=== PATIENT | female | born 1935 | race Caucasian/White ===

== ENCOUNTER 2019-01-28 04:45 | Inpatient (IN) ==
[2019-01-28] MEDS ORDERED: LOPRESSOR IV ONE ×2 (05:08→05:37)
--- NOTE | 2019-01-28 05:18 | PROVIDER DOCUMENTATION ---
HPI-Chest Pain - General Chief Complaint: Chest Pain Stated Complaint: Chest Pain Time Seen by Provider: 01/28/19 05:08 Source: patient Allergies/Adverse Reactions: Patient Allergies Allergy/AdvReac Type Severity Reaction Status Date / Time azithromycin Allergy RASH Verified 09/09/14 09:22 iodine Allergy RASH Verified 09/09/14 09:22 Penicillins Allergy RASH Verified 09/09/14 09:22 Sulfa (Sulfonamide Allergy RASH Verified 09/09/14 09:22 Antibiotics) Home Medications: Home Medication List Medication Instructions Recorded Confirmed Last Taken Type ATORVAstatin [Lipitor] 10 mg PO QHS 11/26/12 09/09/14 12/09/13 History Dabigatran [Pradaxa] 150 mg PO BID 11/26/12 01/28/19 12/09/13 History Diltiazem HCl [Diltiazem ER] 240 mg PO DAILY 11/26/12 01/28/19 12/09/13 History Glipizide [Glucotrol] 10 mg PO BID 11/26/12 01/28/19 12/09/13 History LISINOpril [Prinivil] 20 mg PO BID 11/26/12 01/28/19 12/09/13 History Omeprazole 20 mg PO DAILY 11/26/12 01/28/19 12/09/13 History Potassium Chloride [Kaon-Cl 10] 10 meq PO DAILY 11/26/12 09/09/14 12/09/13 History Bisoprolol Fumarate 5 mg PO DAILY 08/15/13 01/28/19 12/09/13 History Clonidine [Catapres] 0.1 mg PO BID 08/15/13 09/09/14 12/09/13 History Travoprost (Benzalkonium) 2.5 ml OP HS 08/15/13 09/09/14 12/09/13 History [Travatan 0.004% Eye Drop] Levetiracetam [Keppra] 500 mg PO BID 09/09/14 01/28/19 Unknown History Ondansetron [Zofran] 8 mg PO TID PRN PRN #10 tablet 09/09/14 Unknown Rx Furosemide 40 mg PO DIRECTED 01/28/19 01/28/19 Unknown History Omeprazole 20 mg PO 01/28/19 Unknown History - History of Present Illness-CP Nature of Presenting Problem: about 2 hrs [employer], pt began with palpitations, throbbing CP. No radiation, nothing makes better nor worse. No new SOB, no diaphoresis, no N/V. Has had similar before. Has seen Dr Yang, but not in years. Location: reports: substernal Chest Pain Radiation: reports: no radiation Quality of Pain: reports: throbbing Timing: still present Modifying Factors: improves with: nothing Similar Symptoms Previously?: Yes Recently Seen Here or By Another Healthcare Provider: No Review of Systems - Adult - REVIEW OF SYSTEMS - ADULT Constitutional: reports: no symptoms reported Eyes: reports: no symptoms reported Ears, Nose, Mouth & Throat: reports: no symptoms reported Cardiovascular: reports: see HPI Respiratory: reports: no symptoms reported Gastrointestinal: reports: no symptoms reported Genitourinary: reports: no symptoms reported Musculoskeletal: reports: no symptoms reported Integumentary: reports: no symptoms reported Neurological: reports: no symptoms reported Psychiatric: reports: no symptoms reported Endocrine: reports: no symptoms reported Hematologic/Lymphatic: reports: no symptoms reported Allergic/Immunologic: reports: no symptoms reported Past History - Adult - PAST MEDICAL HISTORY-ADULT Review of Records: reports: Medications Reviewed Major Childhood Illnesses: reports: denies history Cardiovascular: reports: A-Fib, HTN Respiratory: reports: denies history Gastrointestinal: reports: denies history Obstetrical/Gynecological: reports: denies history Genitourinary: reports: denies history Musculoskeletal: reports: denies history Neurological: reports: CVA, Seizures/Epilepsy Psychiatric: reports: denies history Endocrine/Immune: reports: Diabetes Other Conditions: reports: denies history - PRIOR SURGERIES/PROCEDURES Surgical/Procedure History: reports: reviewed, not pertinent, other (cataract removal) - IMMUNIZATION STATUS Childhood Immunizations: See Nurse Assessment Flu Vaccine: See Nurse Assessment - FAMILY HISTORY Family History: reviewed, not pertinent Physical Exam-General - PHYSICAL EXAM-ADULT Initial Vital Signs Reviewed: Yes - CONSTITUTIONAL General Appearance: appears well, alert, no apparent distress - EYES Eyes: PERRL/EOMI, pink conjunctivae - HEAD, EARS, NOSE, MOUTH & THROAT HENMT: normocephalic/atraumatic, moist mucous membranes, normal ENT inspection, pharynx normal - NECK Neck: non-tender, full range of motion, supple, normal inspection - RESPIRATORY Respiratory: chest non-tender, lungs clear, normal breath sounds - CARDIOVASCULAR Cardiovascular: tachycardia - GASTROINTESTINAL (ABDOMEN) Abdominal Exam: non tender, soft - MUSCULOSKELETAL Back Exam: normal inspection, no CVA tenderness, no vertebral tenderness Extremity: normal range of motion, non-tender - SKIN Integumentary: normal color, normal turgor, warm/dry - NEUROLOGIC Neurologic: piling cutter II-XII nml as tested, grossly normal, no motor/sensory deficits - PSYCHIATRIC Psych/Mental Status: normal mood/affect, normal thought content, normal thought process, oriented x 3 - HEART Score HEART Score: History: Slightly Suspicious HEART Score: ECG: Non-Specific Repolarization Disturbance/LBBB/PM HEART Score: Age: > or = 65 Years HEART Score: Risk Factors for Atherosclerotic Disease: > or = 3 Risk Factors or History of Atherosclerotic Disease HEART Score: Troponin: < or = Normal Limit Total HEART Score:: 5 Progress - PLAN OF CARE/RESULTS Progress/Plan/Lab Results: Vital Signs - 8 hr 01/28/19 04:52 01/28/19 04:53 01/28/19 05:17 Temperature 98.2 F Pulse Rate 147 H 146 H 119 H Respiratory Rate 31 H 28 H 27 H Blood Pressure 163/110 148/109 O2 Sat by Pulse Oximetry 94 L 95 01/28/19 05:27 01/28/19 05:30 01/28/19 05:33 Temperature Pulse Rate 115 H 102 H 122 H Respiratory Rate 27 H 24 24 Blood Pressure 158/76 149/68 155/80 O2 Sat by Pulse Oximetry 94 L 95 96 01/28/19 05:40 01/28/19 05:48 01/28/19 05:54 Temperature Pulse Rate 125 H 131 H 123 H Respiratory Rate 25 H 23 21 Blood Pressure 153/101 156/64 O2 Sat by Pulse Oximetry 95 95 96 01/28/19 06:03 01/28/19 06:18 01/28/19 06:43 Temperature Pulse Rate 128 H 128 H 128 H Respiratory Rate 23 24 18 Blood Pressure 147/80 126/71 O2 Sat by Pulse Oximetry 96 94 L 96 01/28/19 06:48 01/28/19 07:02 01/28/19 07:10 Temperature Pulse Rate 126 H 125 H 128 H Respiratory Rate 23 28 H 24 Blood Pressure 153/94 152/89 O2 Sat by Pulse Oximetry 96 96 97 01/28/19 07:17 01/28/19 07:20 01/28/19 07:30 Temperature Pulse Rate 125 H 135 H 139 H Respiratory Rate 21 25 H 17 Blood Pressure 148/69 148/101 O2 Sat by Pulse Oximetry 96 96 95 01/28/19 07:31 01/28/19 07:32 01/28/19 07:40 Temperature Pulse Rate 136 H 141 H 125 H Respiratory Rate 22 26 H 25 H Blood Pressure 167/124 160/100 O2 Sat by Pulse Oximetry 96 94 L 97 01/28/19 07:43 Temperature Pulse Rate 131 H Respiratory Rate 18 Blood Pressure 149/75 O2 Sat by Pulse Oximetry 97 Laboratory Results - last 24 hr 01/28/19 01/28/19 01/28/19 04:56 04:56 04:56 WBC 19.95 H RBC 4.72 Hgb 14.1 Hct 43.0 MCV 91.1 MCH 29.9 MCHC 32.8 L RDW Std Deviation 13.3 Plt Count 270 MPV 10.3 Immature Gran % (Auto) 0.3 Neut % (Auto) 73.7 Lymph % (Auto) 16.[address] % (Auto) 8.4 Eos % (Auto) 0.8 Baso % (Auto) 0.2 Immature Gran # (Auto) 0.06 H Neut # (Auto) 14.72 H Lymph # (Auto) 3.32 Lane # (Auto) 1.67 H Eos # (Auto) 0.15 Baso # (Auto) 0.03 Sodium 139 Potassium 3.8 Chloride 99 Carbon Dioxide 22 L Anion Gap 18 BUN 26 H Creatinine 1.6 H Estimated GFR/1.73 m2 31 BUN/Creatinine Ratio 16 Glucose 197 H Calculated Osmolality 288 Calcium 9.6 Magnesium 1.6 Total Bilirubin 0.41 AST 17 ALT 8 L Alkaline Phosphatase 91 Creatine Kinase 55 Troponin T < 0.010 Total Protein 8.1 Albumin 4.1 Globulin 4.0 Albumin/Globulin Ratio 1.0 Plasma Lactate TSH Urine Source Urine Color Urine Turbidity Urine pH Ur Specific [place] Urine Protein Ur Glucose (Stick) Ur Ketones (Stick) Urine Blood Urine Nitrite Urine Bilirubin Urobilinogen Dipstick Urine Leukocytes Urine WBC (Auto) Urine RBC (Auto) U Epithel Cells (Auto) Urine Bacteria (Auto) 01/28/19 01/28/19 01/28/19 04:56 05:01 06:29 WBC RBC Hgb Hct MCV MCH MCHC RDW Std Deviation Plt Count MPV Immature Gran % (Auto) Neut % (Auto) Lymph % (Auto) Lane % (Auto) Eos % (Auto) Baso % (Auto) Immature Gran # (Auto) Neut # (Auto) Lymph # (Auto) Lane # (Auto) Eos # (Auto) Baso # (Auto) Sodium Potassium Chloride Carbon Dioxide Anion Gap BUN Creatinine Estimated GFR/1.73 m2 BUN/Creatinine Ratio Glucose Calculated Osmolality Calcium Magnesium Total Bilirubin AST ALT Alkaline Phosphatase Creatine Kinase Troponin T Total Protein Albumin Globulin Albumin/Globulin Ratio Plasma Lactate 4.0 H TSH 2.37 Urine Source CLEAN CATCH Urine Color YELLOW Urine Turbidity CLEAR Urine pH 6.5 Ur Specific [place] 1.001 Urine Protein 100 A Ur Glucose (Stick) TRACE Ur Ketones (Stick) TRACE A Urine Blood SMALL A Urine Nitrite NEGATIVE Urine Bilirubin NEGATIVE Urobilinogen Dipstick NORMAL Urine Leukocytes NEGATIVE Urine WBC (Auto) <10 Urine RBC (Auto) <10 U Epithel Cells (Auto) <10 Urine Bacteria (Auto) NEGATIVE Orders Category Date Time Status Cardiac Monitoring DIRECTED Care 01/28/19 05:10 Active CHEST-1 VIEW [RAD] Stat Exams 01/28/19 05:09 Completed BLOOD CULTURE [BLDCUL] Stat Lab 01/28/19 06:55 Received C DIFF TOXIN [STOOL] Stat Lab 01/28/19 07:42 Uncollected CBC WITH DIFF [HEME] Stat Lab 01/28/19 04:56 Completed COMPREHENSIVE METABOLIC PANEL [CHEM] Stat Lab 01/28/19 04:56 Completed Cardiac Profile [CK PROFILE] [SP CHEM] Stat Lab 01/28/19 04:56 Completed LACTATE, PLASMA [CHEM] Stat Lab 01/28/19 05:01 Completed MAGNESIUM [CHEM] Stat Lab 01/28/19 04:56 Completed TROPONIN T Stat Lab 01/28/19 04:56 Completed TSH Stat Lab 01/28/19 04:56 Completed URINALYSIS W/POSS RFLX CULT [URINALYSIS] Stat Lab 01/28/19 06:29 Completed 0.9% Sodium Chloride Inj [Ns] 1,000 ml Med 01/28/19 07:42 Discontinued IV 999 mls/hr Levofloxacin 500 mg/D5w [Levaquin 500 mg/D5w] Med 01/28/19 07:42 Discontinued 500 mg in 100 ml IV NOW Metoprolol [Lopressor] Med 01/28/19 05:08 Discontinued 5 mg IV NOW ONE Metoprolol [Lopressor] Med 01/28/19 05:37 Discontinued 5 mg IV NOW ONE Metronidazole 500 mg/Ns [Flagyl 500 mg/Ns] Med 01/28/19 07:42 Discontinued 500 mg in 100 ml IV NOW Ondansetron [Zofran] Med 01/28/19 07:46 Discontinued 4 mg IV NOW ONE Result Diagrams: 01/28/19 04:56 01/28/19 04:56 - REASSESSMENT Reassessment #1 Time Reassessed: 05:36 (says wants to go home, HR still 130s) Status: improving Reassessment #2 Time Reassessed: 07:39 Status: unchanged (Lactate noted, patient still tachycardic/a-fib. Further discussion with the patient, she states that she feels well. Denies any recent fever, cough but did develop some diarrhea yesterday. Will give IV flagyl and levaquin as well as 1 liter NS to start. Because tenuous cardiac condition, will not be aggressive with the IV.) - EKG 1 Time of EKG reading by physician:: 04:58 EKG Read and Signed by:: Rory Albarran EKG Interpretation (*Must complete 3 of following elements*): Abnormal Rate: 142 Rhythm: a fib with RVR [place]: left QRS: Q Waves present (infer leads), poor R wave progression - CONSULTS/PCP/HOSPITALIST Notification #1 *Consult/PCP/Hospitalist*: Dr. Lovett Time Discussed: 08:42 Consult Disposition: Will see in ED - CHANGE OF SHIFT REPORT (ED Provider) 1 Report Given and Care Transferred to:: [facility] Time of Transfer: 07:00 Items Pending: Labs, Physician Consult/Arrival Departure - Departure Date of Disposition Decision: 01/28/19 Time of Disposition Decision: 08:42 DIAGNOSIS: Atrial fibrillation with normal ventricular rate, Lactate blood increased Disposition: ADMITTED INPATIENT 09 Certified Medical Emergency: Emergent Condition: Critical Referrals and Follow-Ups: Joshua Lovett MD [Primary Care Provider] - - Critical Care Note This patient required my direct & personal management of CC.: Yes Total Time (mins): 31 Critical Care Statement: This patient required my direct personal management to treat or rule out processes, the absence of which, could potentiallly result in sudden, clinically significant life or limb threatening deterioration. Attestation - Physician/ DWAINE Attestation Patient care was provided by Advanced Practice Provider:: No The physician spent face to face time with patient:: Yes Advanced Practice Provider documentation review:: Supervising physician onsite and consulted in the evaluation and care of this patient. The physician did have a face to face encounter with the patient.
[2019-01-28 05:45] LABS: BASO# 0.03 X1000 (0.0-0.2); BASO% 0.2 % (0.0-0.8); EOS# 0.15 X1000 (0.0-0.7); EOS% 0.8 % (0.0-10.0); HEMOGLOBIN 14.1 g/dL (12.0-16.0); IMM GRAN# 0.06 X1000 (0.0-0.04); IMM GRAN% 0.3 % (0.0-0.5); LYMPH# 3.32 X1000 (1.2-3.4); LYMPH% 16.6 % (20.5-51.1); MCH 29.9 PG (27-31); MCHC 32.8 g/dL (33-37); MCV 91.1 FL (81-99); MONO# 1.67 X1000 (0.11-0.59); MONO% 8.4 % (1.7-9.3); MPV 10.3 FL (7.4-10.4); NEUT# 14.72 X1000 (1.4-6.5); NEUT% 73.7 % (42.2-75.2); PLT 270 X1000 (130-400); RBC 4.72 XMIL (4.2-5.4); RDW 13.3 % (11.5-14.5); WBC 19.95 X1000 (4.8-10.8)
[2019-01-28 05:54] LABS: ALBUMIN 4.1 g/dL (3.5-5.0); CALCIUM 9.6 mg/dL (8.8-10.2); CREATININE 1.6 mg/dL (0.5-0.9); MAGNESIUM 1.6 mg/dL (1.5-2.7); POTASSIUM 3.8 mmol/L (3.5-5.1); TOTAL BILIRUBIN 0.41 mg/dL (0.20-1.00); TOTAL PROTEIN 8.1 g/dL (6.3-8.3)
[2019-01-28 06:47] LABS: URINE SOURCE CLEAN CATCH
[2019-01-28 07:00] LABS: BILIRUBIN URINE NEGATIVE (NEGATIVE); BLOOD URINE SMALL (NEGATIVE); COLOR YELLOW; GLUCOSE URINE TRACE mg/dL (NEGATIVE); KETONE URINE TRACE mg/dL (NEGATIVE); LEUKOCYTES URINE NEGATIVE (NEGATIVE); NITRITE URINE NEGATIVE (NEGATIVE); PH URINE 6.5; PROTEIN URINE 100 mg/dL (NEGATIVE); SP GRAVITY URINE 1.001; TURBIDITY URINE CLEAR (CLEAR); UR EPITHELIAL CELLS <10 /HPF (<10); URINE BACTERIA NEGATIVE /HPF; URINE RBC <10 /HPF (<10); URINE WBC <10 /HPF (<10); UROBILINOGEN URINE NORMAL (NORMAL)
--- NOTE | 2019-01-28 07:31 | Diag Imaging Result Doc PS360 ---
EXAM: CHEST-1 VIEW INDICATION: palpitations TECHNIQUE: One view COMPARISON: 10/28/2017 FINDINGS: The lungs are grossly clear. There is no discrete pleural fluid collection or pneumothorax. The cardiomediastinal silhouette and central vasculature are grossly unremarkable. IMPRESSION: No evidence of acute pathology by plain radiograph. Electronically signed by Matthieu Crisostomo 01/28/2019 7:29 AM
[2019-01-28] MEDS ORDERED: FLAGYL 500 MG/NS 500 MG/100 ML IVPB IV ONE (07:42)
[2019-01-28] MEDS ORDERED: LEVAQUIN 500 MG/D5W 500 MG/100 ML IVPB IV ONE (07:42)
[2019-01-28] MEDS ORDERED: NS 1,000 ML IV ONE (07:42)
[2019-01-28] MEDS ORDERED: ZOFRAN IV ONE (07:46)
[2019-01-28] MEDS ORDERED: CARDIZEM IV ONE (08:59)
[2019-01-28] MEDS ORDERED: ZEBETA PO ONE ×2 (09:23→17:35)
--- NOTE | 2019-01-28 09:23 | EKG Report ---
Test Performed on : 01/28/2019 04:55:34 AM Test Reason : ED. NO EKG ORDER FOR MUSE Blood Pressure : / mmHG Vent. Rate : 142 BPM Atrial Rate : 122 BPM P-R Int : 000 ms QRS Dur : 074 ms QT Int : 274 ms P-R-T Axes : 000 -30 133 degrees QTc Int : 421 ms Atrial fibrillation. with rapid ventricular response. with premature ventricular or aberrantly conduc shelby complexes. Left axis deviation Inferior infarct , age undetermined Anteroseptal infarct (cited on or before 28-OCT-2011) ST & T wave abnormality, consider lateral ischemia Abnormal ECG When compared with ECG of 27-JUN-2018 09:50, Significant changes have occurred Unconfirmed Result
--- NOTE | 2019-01-28 10:52 | HISTORY AND PHYSICAL ---
CHIEF COMPLAINT: Palpitations with some chest tightness. PRESENT ILLNESS: Mrs. Lewis is an 83-year-old white female who lives with her special needs daughter. Her daughter called for an ambulance around 4 this morning after her mother had an hour or so of rapid forceful heartbeat and occasional chest tightness. Mrs. Lewis says that yesterday she began having some diarrhea and had 3 or 4 loose stools. She denies abdominal pain, fever, or chills. She has chronic edema due to venous insufficiency in both lower legs. She has not noticed any increased pain or swelling in her calves. She has a long history of chronic atrial fibrillation, and in my office approximately 6 weeks ago, her heart rate was 89. PAST MEDICAL HISTORY: Longstanding hypertension, chronic atrial fibrillation, type 2 diabetes mellitus. In 2010, she had a stroke with mild residual left hemiparesis. She has been on Pradaxa twice a day ever since then with no further strokes. She has chronic venous hypertension and stasis dermatitis of both lower legs. PAST SURGICAL HISTORY: Remarkable for a previous appendectomy, cervical polyp, and benign breast biopsy. ALLERGIES: She is allergic to penicillin, which causes a rash. Sulfa drugs also a rash, and glyburide. HOME MEDICATIONS: Pradaxa 150 mg b.i.d., Travatan Z eyedrops 1 drop at bedtime in the left eye, bisoprolol 5 mg daily, vitamin B12 1000 mcg p.o. daily, diltiazem CD 240 mg daily, glipizide 5 mg twice a day, levetiracetam 500 mg twice a day, lisinopril 20 mg twice a day, omeprazole 20 mg daily. SOCIAL HISTORY: She is . She cares for her adult daughter, who is mentally retarded. She has never used alcohol or tobacco. REVIEW OF SYSTEMS: General: No fever, chills, night sweats, weight loss. HEENT exam: Vision and hearing are stable without recent changes. She sees her fruit press operator every 6 months to monitor glaucoma. Ears, Nose, and Throat: Minimal hearing loss. No recent sore throat or hoarseness. She sees a dentist for gum disease. Cardiovascular: No recent angina, diaphoresis, dizziness, exertional shortness of breath, or syncope. She has no history of congestive heart failure or valvular heart disease and an echocardiogram several years ago documented normal left ventricular function and minimal if any valvular disease. Respiratory: No cough, shortness of breath, sputum production, or wheezing. GI: Other than diarrhea, it is negative with no recent abdominal pain, difficulty swallowing, heartburn, melena, or hematemesis. No nausea or vomiting. : No dysuria, hematuria. Rare incontinence. Musculoskeletal: Minimal but stable diffuse joint aches at times. Dermatologic: No rash or itching. She does have a history of chronic venous stasis ulceration and stasis dermatitis. Neurologic: No dizziness or falls. She does not recall ever having a seizure but was placed on Keppra after her stroke in 2010. Psychiatric: No mood or thought disorders. Her memory is stable and she pays her own bills and navigates well in driving. Endocrine: No history of thyroid disease. Her diabetes has been fairly well-controlled on oral medication. Hematologic: No recent bleeding episodes despite her Pradaxa. PHYSICAL EXAMINATION: VITAL SIGNS: Temperature is 98.2, blood pressure 149/75, heart rate 131, respirations 18, O2 saturation 94% on room air. GENERAL APPEARANCE: Alert, talkative, elderly white female, who remains cheerful despite her adversity. HEENT EXAM: Pupils equal, round, and reactive to light. Extraocular movements are intact. Oropharynx is benign. NECK: Supple with no adenopathy, JVD, or bruits. CARDIOVASCULAR: There is an irregular irregular tachycardia with variable S1. No murmurs or gallops are appreciated. LUNGS: Clear to auscultation and percussion. ABDOMEN: Soft, flat, nontender, with no organomegaly, no rebound or guarding. Bowel sounds are active. MUSCULOSKELETAL: No obvious joint abnormalities. She has moderate brawny edema of both lower legs and ankles with multiple varicose veins. The right calf has increased orange peel texture to the skin and redness with slight tenderness. LYMPHATIC: No adenopathy. NEUROLOGIC: Mental status is normal. Speech is clear and well-articulated. There are no obvious cranial nerve deficits. She moves all extremities on command. Gait is not tested. ASSESSMENT: 1. Chronic atrial fibrillation with recently increased heart rate and rapid ventricular response. She will need admission and reinstitution of medications to control her heart rate. She will be continued on the Pradaxa. 2. Elevated white blood count probably due to cellulitis of right calf. Will treat with intravenous cefazolin initially. 3. Chronic venous hypertension of both lower extremities. 4. Essential hypertension. 5. Type 2 diabetes mellitus. 6. History of pernicious anemia on oral replacement. TREATMENT PLAN: Admit for telemetry monitoring and will give 1 dose of IV Cardizem. She will need telemetry monitoring on the floor. Hopefully in 2 or 3 days, she will be ready to return home and care for her daughter. cc: Joshua Lovett MD
[2019-01-28] MEDS: BISOPROLOL FUMARATE 5 MG PO SCH ×2 (11:02→11:05)
[2019-01-28] MEDS: KEFZOL 1 GM/D5W 1 GM/50 ML IVPB IV SCH ×2 (11:22→21:15)
[2019-01-28] MEDS ORDERED: ZEBETA PO SCH (11:45)
[2019-01-28] MEDS ORDERED: DILAUDID IV ONE (19:31)
[2019-01-28] MEDS ORDERED: CARDIZEM CD PO SCH (21:00)
[2019-01-28] MEDS ORDERED: TRAVATAN 0.004% OPH SOLN OPH SCH (21:00)
[2019-01-28] MEDS: GLUCOTROL PO SCH (21:15)
[2019-01-28] MEDS: PRINIVIL PO SCH (21:15)
[2019-01-28] MEDS: LIPITOR PO SCH (21:15)
[2019-01-28] MEDS: KEPPRA PO SCH (21:16)
[2019-01-28] MEDS: PRADAXA PO SCH (21:16)
[2019-01-28] MEDS: CATAPRES PO SCH (21:16)
[2019-01-29] MEDS: KEFZOL 1 GM/D5W 1 GM/50 ML IVPB IV SCH ×2 (02:53→11:48)
[2019-01-29] MEDS: PRILOSEC PO SCH (06:41)
[2019-01-29] MEDS ORDERED: PREVNAR 13 IM ONE (08:19)
[2019-01-29 08:53] LABS: HEMATOCRIT 41.1 % (37.0-47.0); HEMOGLOBIN 13.4 g/dL (12.0-16.0); MCH 30.1 PG (27-31); MCHC 32.6 g/dL (33-37); MCV 92.4 FL (81-99); MPV 10.1 FL (7.4-10.4); RBC 4.45 XMIL (4.2-5.4); RDW 13.6 % (11.5-14.5); WBC 24.43 X1000 (4.8-10.8)
[2019-01-29] MEDS: ZEBETA PO SCH ×2 (09:10→23:30)
[2019-01-29] MEDS: KEPPRA PO SCH ×2 (09:10→23:30)
[2019-01-29] MEDS: CATAPRES PO SCH ×2 (09:10→23:30)
[2019-01-29] MEDS: PRINIVIL PO SCH ×2 (09:11→23:30)
[2019-01-29] MEDS: PRADAXA PO SCH ×2 (09:11→23:30)
[2019-01-29] MEDS: GLUCOTROL PO SCH ×2 (09:12→17:30)
[2019-01-29] MEDS ORDERED: CARDIZEM CD PO ONE (14:09)
[2019-01-29] MEDS: LIPITOR PO SCH (23:30)
[2019-01-29] MEDS: CARDIZEM CD PO SCH (23:30)
[2019-01-30] MEDS: KEFZOL 1 GM/D5W 1 GM/50 ML IVPB IV SCH (06:25)
[2019-01-30] MEDS: PRILOSEC PO SCH (06:25)
[2019-01-30 06:58] LABS: BASO# 0.04 X1000 (0.0-0.2); BASO% 0.2 % (0.0-0.8); EOS# 0.21 X1000 (0.0-0.7); EOS% 1.3 % (0.0-10.0); HEMATOCRIT 39.4 % (37.0-47.0); HEMOGLOBIN 12.8 g/dL (12.0-16.0); IMM GRAN# 0.06 X1000 (0.0-0.04); IMM GRAN% 0.4 % (0.0-0.5); LYMPH# 2.55 X1000 (1.2-3.4); LYMPH% 15.3 % (20.5-51.1); MCH 29.8 PG (27-31); MCHC 32.5 g/dL (33-37); MCV 91.8 FL (81-99); MONO# 2.59 X1000 (0.11-0.59); MONO% 15.5 % (1.7-9.3); MPV 10.5 FL (7.4-10.4); NEUT# 11.24 X1000 (1.4-6.5); NEUT% 67.3 % (42.2-75.2); PLT 206 X1000 (130-400); RBC 4.29 XMIL (4.2-5.4); RDW 13.6 % (11.5-14.5); WBC 16.69 X1000 (4.8-10.8)
[2019-01-30 07:06] LABS: CALCIUM 8.9 mg/dL (8.8-10.2); CREATININE 1.5 mg/dL (0.5-0.9); POTASSIUM 2.8 mmol/L (3.5-5.1)
[2019-01-30] MEDS ORDERED: K-LYTE CL PO ONE (07:59)
[2019-01-30 08:02] VITALS: BP 119/56
[2019-01-30] MEDS ORDERED: MAG-OX PO SCH (09:00)
[2019-01-30] MEDS ORDERED: KEFLEX PO SCH (09:00)
[2019-01-30] MEDS: CATAPRES PO SCH (09:33)
[2019-01-30] MEDS: KEPPRA PO SCH (09:33)
[2019-01-30] MEDS: PRINIVIL PO SCH (09:33)
[2019-01-30] MEDS: ZEBETA PO SCH (09:33)
[2019-01-30] MEDS: PRADAXA PO SCH (09:34)
[2019-01-30] MEDS: GLUCOTROL PO SCH (09:34)
[2019-01-30] MEDS: CARDIZEM CD PO SCH (09:34)
--- NOTE | 2019-01-31 08:04 | DISCHARGE SUMMARY ---
ADMISSION DATE: 01/28/2019 DISCHARGE DATE: 01/30/2019 FINAL DIAGNOSES: 1. Cellulitis of the right lower extremity with early sepsis. 2. Chronic atrial fibrillation with rapid ventricular response. 3. Chronic venous hypertension, bilateral. 4. Essential hypertension. 5. Type 2 diabetes. 6. Glaucoma. 7. Hypokalemia. PRESENT ILLNESS: Ms. Lewis is an 83-year-old white female who presented to the emergency room early in the morning with a history of palpitations. In the emergency room, her evaluation was remarkable for rapid irregular heart rate and an elevated white blood count. She also had an elevated lactate level of 4. She had a history of chronic atrial fibrillation, hypertension and type 2 diabetes. PHYSICAL EXAMINATION: Revealed an alert, cooperative, elderly white female who has clear lung pratt, a rapid irregular heart rate and bilateral chronic venous stasis with increased redness and tenderness of the right calf. DATA BASE: White blood count was 19,000. Hemoglobin and hematocrit were unremarkable. Platelet count was normal. Electrolytes were initially normal with a slightly elevated anion gap of 18, BUN of 26, creatinine of 1.6, glucose 197. Chest x-ray was unremarkable. HOSPITAL COURSE: She was admitted with a diagnosis of atrial fibrillation with rapid ventricular response and suspected cellulitis of the right lower leg. She was treated with intravenous cefazolin. Her heart rate control was improved by increasing her bisoprolol to 5 mg twice a day and Cardizem CD 240 mg twice a day. She was noted to be hypokalemic on the day of discharge and given potassium and a new prescription for some tablets at home. She requested discharge early but agreed to home health as she has to take care of her special needs daughter at home. She is to return to my office in 8-14 days for transition of care visit. She requested [facility]. DISCHARGE MEDICATIONS: 1. Atorvastatin 10 mg at bedtime. 2. Diltiazem CD 240 mg q.12 hours. 3. Clonidine 0.1 mg twice a day. 4. Cephalexin 500 mg q.12 hours for 7 days. 5. Magnesium oxide 400 mg daily. 6. Bisoprolol 5 mg q.12 hours. 7. Travoprost ophthalmic solution as prescribed. 8. Lisinopril 20 mg twice a day. 9. Pradaxa 150 mg twice a day. 10.Omeprazole 20 mg daily. 11.Glipizide 5 mg twice a day. 12.Furosemide 20 mg Saturday, Saturday, Saturday morning. 13.Klor-Con 10 mEq one twice a day. 14.Levetiracetam 500 mg twice a day. cc: Joshua Lovett MD
== END 2019-01-30 10:44 | disposition home health service (06) | DRG 872 ==
LOC: SUPCPDRO → ED 04:45 → EDIPHOLD 10:24 → 4N 20:18
PROVIDERS: ADMIT Internal Medicine; ATTEND Internal Medicine
CPT/HCPCS: 71010; 71045; 80048; 80053; 81001; 82550; 82948; 83605; 83735; 84443; 84484; 85025; 85027; 87040; 90670; 93005; 96365; 96367; 96375; 96376; 99285; A9270; J0690; J1956; J2405; J7030; S0030; XXXXX

== ENCOUNTER 2019-08-07 10:24 | Inpatient (IN) ==
[2019-08-07] MEDS ORDERED: NS 500 ML IV ONE ×2 (11:10→12:28)
[2019-08-07] MEDS ORDERED: ZOFRAN IV ONE (11:10)
--- NOTE | 2019-08-07 11:46 | Diag Imaging Result Doc PS360 ---
EXAM: CHEST-1 VIEW HISTORY: N/V, abd pain TECHNIQUE: Single view COMPARISON: 03/29/2019 FINDINGS: The lungs are well expanded except for mild increased markings in the left lower lung. Heart is borderline mildly prominent. No pleural effusions identified. No consolidation. IMPRESSION: Atelectasis versus a small infiltrate in the left base Electronically signed by Daruis Dewey 08/07/2019 11:44 AM
[2019-08-07 11:59] LABS: BASO# 0.03 X1000 (0.0-0.2); BASO% 0.1 % (0.0-0.8); EOS# 0.01 X1000 (0.0-0.7); IMM GRAN# 0.16 X1000 (0.0-0.04); IMM GRAN% 0.5 % (0.0-0.5); LYMPH# 0.76 X1000 (1.2-3.4); LYMPH% 2.5 % (20.5-51.1); MCH 29.9 PG (27-31); MCHC 31.8 g/dL (33-37); MCV 93.8 FL (81-99); MONO# 3.61 X1000 (0.11-0.59); MONO% 11.8 % (1.7-9.3); MPV 10.5 FL (7.4-10.4); NEUT# 26.09 X1000 (1.4-6.5); NEUT% 85.1 % (42.2-75.2); PLT 243 X1000 (130-400); RBC 4.69 XMIL (4.2-5.4); RDW 12.8 % (11.5-14.5); WBC 30.66 X1000 (4.8-10.8)
[2019-08-07 12:13] LABS: ALBUMIN 3.9 g/dL (3.5-5.0); CALCIUM 9.7 mg/dL (8.8-10.2); CREATININE 1.4 mg/dL (0.5-0.9); POTASSIUM 4.2 mmol/L (3.5-5.1); TOTAL BILIRUBIN 0.83 mg/dL (0.20-1.00)
[2019-08-07 12:19] LABS: URINE SOURCE VOIDED
[2019-08-07 12:22] LABS: BILIRUBIN URINE NEGATIVE (NEGATIVE); BLOOD URINE MODERATE (NEGATIVE); COLOR YELLOW; GLUCOSE URINE 300 mg/dL (NEGATIVE); KETONE URINE TRACE mg/dL (NEGATIVE); LEUKOCYTES URINE NEGATIVE (NEGATIVE); NITRITE URINE NEGATIVE (NEGATIVE); PH URINE 6.5; PROTEIN URINE 600 mg/dL (NEGATIVE); SP GRAVITY URINE 1.018; TURBIDITY URINE HAZY (CLEAR); UROBILINOGEN URINE NORMAL (NORMAL)
[2019-08-07 12:23] LABS: UR EPITHELIAL CELLS <10 /HPF (<10); URINE BACTERIA 4+ /HPF; URINE RBC 20-40 /HPF (<10); URINE WBC <10 /HPF (<10)
[2019-08-07] MEDS ORDERED: LEVAQUIN 500 MG/D5W 500 MG/100 ML IVPB IV ONE (12:26)
[2019-08-07] MEDS ORDERED: MAXIPIME 2 GM in NS 100 ML IV ONE (12:28)
[2019-08-07] MEDS ORDERED: NS 1,000 ML IV ONE (12:28)
[2019-08-07] MEDS ORDERED: VANCOMYCIN 1 GM/NS 1 GM/250 ML IVPB IV ONE (12:28)
[2019-08-07 13:05] LABS: INR 2.07; PROTIME 23.8 Seconds (11.0-16.0); PTT 53.1 Seconds (22.3-41.8)
--- NOTE | 2019-08-07 13:43 | Diag Imaging Result Doc PS360 ---
EXAM: CT ABDOMEN/PELVIS W/O CONTRAST HISTORY: Abd pain TECHNIQUE: CT abdomen and pelvis without contrast COMPARISON: None. FINDINGS: No calcified gallstones or adjacent inflammation. There are scattered hepatic and splenic granuloma. No focal hepatic normality identified on this noncontrasted study. No splenomegaly. Severe atherosclerosis. Pancreas is atrophic. Normal adrenal glands. No renal stones or hydronephrosis. There are small para-aortic and mesenteric nodes. No bowel obstruction. No inflammation about the cecum. No abscess. There are scattered colonic diverticula. Urinary bladder is moderately distended and is normal. Normal uterus. No pelvic mass. Mildly prominent iliac nodes. Enlarged right inguinal lymph node measuring 17 x 30 mm. IMPRESSION: 1.Severe atherosclerosis 2.Colonic diverticulosis 3.Small scattered nodes with an enlarged right inguinal lymph node This exam was performed using automated exposure control, adjustment of mA or kV according to patient size, and/or use of iterative reconstruction technique. Electronically signed by Darius Dewey 08/07/2019 1:40 PM
[2019-08-07 14:36] LABS: URINE SOURCE CATH
[2019-08-07 14:45] LABS: BILIRUBIN URINE NEGATIVE (NEGATIVE); BLOOD URINE MODERATE (NEGATIVE); COLOR YELLOW; GLUCOSE URINE 150 mg/dL (NEGATIVE); KETONE URINE TRACE mg/dL (NEGATIVE); LEUKOCYTES URINE NEGATIVE (NEGATIVE); NITRITE URINE NEGATIVE (NEGATIVE); PH URINE 6.5; PROTEIN URINE 600 mg/dL (NEGATIVE); SP GRAVITY URINE 1.016; TURBIDITY URINE HAZY (CLEAR); UROBILINOGEN URINE NORMAL (NORMAL)
[2019-08-07 14:48] LABS: UR EPITHELIAL CELLS <10 /HPF (<10); URINE BACTERIA 4+ /HPF; URINE RBC 20-40 /HPF (<10)
[2019-08-07] MEDS ORDERED: HUMALOG SUBQ ONE (16:06)
[2019-08-07] MEDS ORDERED: ZOFRAN ODT PO PRN ×3 (16:08→17:46)
--- NOTE | 2019-08-07 16:14 | PROVIDER DOCUMENTATION ---
This chart was entered by Taylor Vora Scribe, acting as scribe for Rory Albarran MD. HPI-General Adult - General Chief Complaint: Vomiting Stated Complaint: VOMITING Time Seen by Provider: 08/07/19 10:44 Source: patient Allergies/Adverse Reactions: Patient Allergies Allergy/AdvReac Type Severity Reaction Status Date / Time azithromycin Allergy RASH Verified 08/07/19 11:42 iodine Allergy RASH Verified 08/07/19 11:42 Penicillins Allergy RASH Verified 08/07/19 11:42 Sulfa (Sulfonamide Allergy RASH Verified 08/07/19 11:42 Antibiotics) Home Medications: Home Medication List Medication Instructions Recorded Confirmed Last Taken Type Glipizide [Glucotrol] 5 mg PO BID 11/26/12 08/07/19 08/07/19 History LISINOpril [Prinivil] 20 mg PO BID 11/26/12 08/07/19 08/07/19 History Omeprazole 20 mg PO DAILY 11/26/12 08/07/19 08/07/19 History Levetiracetam [Keppra] 500 mg PO BID 09/09/14 08/07/19 08/07/19 History Magnesium Oxide [Mag-Ox] 400 mg PO DAILY #30 tab 01/30/19 08/07/19 08/07/19 Rx Travoprost 0.004% Oph Soln 0 ml OPH HS bottle 01/30/19 08/07/19 08/06/19 Rx [Travatan 0.004% Oph Soln] Bisoprolol [Zebeta] 5 mg PO DAILY 03/17/19 08/07/19 08/07/19 History Prednisolone Acetate/Pf 1 drp OPHTHALMIC (EYE) DAILY 03/17/19 08/07/19 08/07/19 History [Prednisolone Acet 1% Eye Drop] Diltiazem C.d. [Cardizem Cd] 240 mg PO BID 03/29/19 08/07/19 08/07/19 History Dabigatran [Pradaxa] 75 mg PO BID #60 cap 03/30/19 08/07/19 08/07/19 Rx Hydrocodone/Acetaminophen [Jackson 1 ea PO Q6-8H PRN PRN 08/07/19 08/07/19 08/07/19 History 10-325 Tablet] - History of Present Illness -Gen Adult Nature of Presenting Problems: Patient is a 84 year old female who presents with nausea, vomiting, diarrhea and headache. States symptoms started last night. Denies abdominal pain and fever. Location of Pain/Injury: reports: none Quality of Pain: reports: none Severity: reports: mild Onset/Duration: reports: last night Timing: reports: still present Context/Activities at Onset: reports: light activity Associated Symptoms: reports: diarrhea, headaches, nausea, vomiting Similar Symptoms Previously?: Yes Recently seen or treated by another doctor?: No Review of Systems - Adult - REVIEW OF SYSTEMS - ADULT Constitutional: reports: no symptoms reported. denies: chills, fever, fatique Eyes: reports: no symptoms reported Ears, Nose, Mouth & Throat: reports: no symptoms reported. denies: ear pain, nose pain, throat pain Cardiovascular: reports: no symptoms reported. denies: chest pain Respiratory: reports: no symptoms reported. denies: shortness of breath Gastrointestinal: reports: see HPI, diarrhea, nausea, vomiting. denies: abdominal pain Genitourinary: reports: no symptoms reported Musculoskeletal: reports: no symptoms reported Integumentary: reports: no symptoms reported Neurological: reports: see HPI, headache/migraines (RAZO). denies: diz ziness/vertigo, seizure, syncope Psychiatric: reports: no symptoms reported Endocrine: reports: no symptoms reported Hematologic/Lymphatic: reports: no symptoms reported Allergic/Immunologic: reports: no symptoms reported All Other Systems: Reviewed and Negative Past History - Adult - PAST MEDICAL HISTORY-ADULT Review of Records: reports: Old Records Reviewed, Nursing Assessment Review, Medications Reviewed, Social history reviewed & non-contributory. Major Childhood Illnesses: reports: denies history Cardiovascular: reports: A-Fib, CHF, HTN, hyperlipidemia Respiratory: reports: denies history Gastrointestinal: reports: GERD Obstetrical/Gynecological: reports: denies history Genitourinary: reports: denies history Musculoskeletal: reports: denies history Neurological: reports: CVA, Seizures/Epilepsy Psychiatric: reports: denies history Endocrine/Immune: reports: Diabetes Other Conditions: reports: denies history - PRIOR SURGERIES/PROCEDURES Surgical/Procedure History: reports: reviewed, not pertinent, appendectomy, other (cataract removal) - IMMUNIZATION STATUS Childhood Immunizations: See Nurse Assessment Flu Vaccine: See Nurse Assessment - FAMILY HISTORY Family History: reviewed, not pertinent - SOCIAL HISTORY Smoking: denies Substance Use: denies Living Situation: family Physical Exam-General - PHYSICAL EXAM-ADULT Initial Vital Signs Reviewed: Yes - CONSTITUTIONAL General Appearance: alert, no apparent distress. negative: lethargic - HEAD, EARS, NOSE, MOUTH & THROAT HENMT: normocephalic/atraumatic, moist mucous membranes. negative: angioedema - RESPIRATORY Respiratory: chest non-tender, lungs clear, normal breath sounds. negative: crackles, stridor - CARDIOVASCULAR Cardiovascular: normal peripheral pulses, regular rate, rhythm. negative: tachycardia - GASTROINTESTINAL (ABDOMEN) Abdominal Exam: normal bowel sounds, soft, tenderness (diffuse). negative: rigid - MUSCULOSKELETAL Extremity: non-tender, normal inspection. negative: deformity, erythema - SKIN Integumentary: normal color, normal turgor, warm/dry. negative: diaphoresis - NEUROLOGIC Neurologic: grossly normal. negative: aphasia, facial droop - PSYCHIATRIC Psych/Mental Status: normal mood/affect, oriented x 3. negative: anxious Progress - PLAN OF CARE/RESULTS Progress/Plan/Lab Results: Vital Signs - 8 hr 08/07/19 10:36 Temperature 98.2 F Pulse Rate 158 H Respiratory Rate 20 Blood Pressure 116/84 O2 Sat by Pulse Oximetry 95 Orders Category Date Time Status Nursing- Obtain EKG ONCE Care 08/07/19 11:13 Active CHEST-1 VIEW [RAD] Stat Exams 08/07/19 11:[address] ABD/PELVIS W/IV CONT ONLY [CT] Stat Exams 08/07/19 11:10 Ordered CBC WITH DIFF [HEME] Stat Lab 08/07/19 11:09 Uncollected COMPREHENSIVE METABOLIC PANEL [CHEM] Stat Lab 08/07/19 11:19 Ordered URINALYSIS [URINALYSIS] Stat Lab 08/07/19 11:10 Uncollected 0.9% Sodium Chloride Inj [Ns] 500 ml Med 08/07/19 11:10 Active IV 999 mls/hr Ondansetron [Zofran] Med 08/07/19 11:10 Discontinued 8 mg IV NOW ONE EKG [EKG] Stat Ther 08/07/19 11:10 Ordered Result Diagrams: 08/07/19 11:05 08/07/19 11:05 - EKG 1 Time of EKG reading by physician:: 10:54 EKG Read and Signed by:: Rory Albarran EKG Interpretation (*Must complete 3 of following elements*): Abnormal (anterolateral infarct, age undetermined) Rate: 159 Rhythm: atrial fibrillation with rapid ventricular response [place]: left Comments: inferior infarct, age undetermined; - XRAY 1 XRAY Study: Chest Impression: See EMR Report (Signed EXAM: CHEST-1 VIEW HISTORY: N/V, abd pain TECHNIQUE: Single view COMPARISON: 03/29/2019 FINDINGS: The lungs are well expanded except for mild increased markings in the left lower lung. Heart is borderline mildly prominent. No pleural effusions identified. No consolidation. IMPRESSION: Atelectasis versus a small infiltrate in the left base Electronically signed by Darius Dewey 08/07/2019 11:44 AM 1144 Interpreting Physician: Darius Dewey MD Dictated Date/Time: 08/07/19 1143 cc: Rory Albarran MD; Joshua Lovett MD) - CT/MRI 1 CT Study: Abdomen, Pelvis Impression: See EMR Report ( EXAM: CT ABDOMEN/PELVIS W/O CONTRAST HISTORY: Abd pain TECHNIQUE: CT abdomen and pelvis without contrast COMPARISON: None. FINDINGS: No calcified gallstones or adjacent inflammation. There are scattered hepatic and splenic granuloma. No focal hepatic normality identified on this noncontrasted study. No splenomegaly. Severe atherosclerosis. Pancreas is atrophic. Normal adrenal glands. No renal stones or hydronephrosis. There are small para-aortic and mesenteric nodes. No bowel obstruction. No inflammation about the cecum. No abscess. There are scattered colonic diverticula. Urinary bladder is moderately distended and is normal. Normal uterus. No pelvic mass. Mildly prominent iliac nodes. Enlarged right inguinal lymph node measuring 17 x 30 mm. IMPRESSION: 1.Severe atherosclerosis 2.Colonic diverticulosis 3.Small scattered nodes with an enlarged right inguinal lymph node This exam was performed using automated exposure control, adjustment of mA or kV according to patient size, and/or use of iterative reconstruction technique. Electronically signed by Darius Dewey 08/07/2019 1:40 PM 08/07/19 1340 Interpreting Physician: Darius Dewey MD Dictated Date/Time: 08/07/19 1338 cc: Rory Albarran MD; Joshua Lovett MD) - CONSULTS/PCP/HOSPITALIST Notification #1 *Consult/PCP/Hospitalist*: Dr. Lovett paged at [id number] Time Discussed: 15:31 Reason/Comments: Dr. Albarran consulted with Dr. Lovett about patient. Consult Disposition: Will see in ED, Admit Departure - Departure Date of Disposition Decision: 08/07/19 Time of Disposition Decision: 12:32 DIAGNOSIS: UTI (urinary tract infection), Leukocytosis, Vomiting Disposition: ADMITTED INPATIENT 09 Certified Medical Emergency: Emergent Condition: Stable Referrals and Follow-Ups: Joshua Lovett MD [Primary Care Provider] - - Critical Care Note This patient required my direct & personal management of CC.: No Attestation - Physician/ DWAINE Attestation Patient care was provided by Advanced Practice Provider:: No The physician spent face to face time with patient:: Yes Advanced Practice Provider documentation review:: Supervising physician onsite and consulted in the evaluation and care of this patient. The physician did have a face to face encounter with the patient. This chart was documented by the indicated scribe, (Taylor Vora Scribe) and accurately reflects the services I performed and decisions made by me, Rory Albarran MD, as attested by the provider's signature.
--- NOTE | 2019-08-07 17:28 | HISTORY AND PHYSICAL ---
CHIEF COMPLAINT: Nausea and vomiting. HISTORY OF PRESENT ILLNESS: Ms. Lewis is an 84-year-old white female who lives with her special-needs daughter. She presented to the emergency room with an approximately 18-hour history of nausea and vomiting. Evaluation in the emergency room has documented an elevated white count of 30,000 with relatively normal hemoglobin, hematocrit and platelet count. She also has a history of diabetes and a blood sugar of 332. BUN and creatinine are close to her baseline at 27 and 1.4. She was also noted to have an irregular tachycardia on admission. She has a long history of chronic atrial fibrillation, controlled with bisoprolol and diltiazem. She also takes Pradaxa at home to prevent blood clots. She was noted to have both white blood cells and red blood cells in her urine, and 4+ bacteria, and is admitted with a diagnosis of acute pyelonephritis with possible sepsis. PAST MEDICAL HISTORY: Longstanding hypertension and longstanding chronic atrial fibrillation, and also type 2 diabetes mellitus. She has a history of cerebrovascular disease with a stroke and mild residual hemiparesis in 2010. She has been on Pradaxa twice a day since then without further strokes. She has chronic venous stasis with venous hypertension and stasis dermatitis of both lower legs. PAST SURGICAL HISTORY: Remarkable for remote appendectomy, cervical polyp and benign breast biopsy. ALLERGIES: She is allergic to penicillin and sulfa drugs. She has tolerated cephalosporins in the past. HOME MEDICATIONS: Pradaxa 150 mg twice a day, Travatan Z eyedrops, 1 drop in the left eye at bedtime, bisoprolol 5 mg twice a day, vitamin B12 at 1000 mcg daily, diltiazem CD 240 mg daily, glipizide 5 mg twice a day, levetiracetam 500 mg twice a day, lisinopril 20 mg twice a day, omeprazole 20 mg daily. SOCIAL HISTORY: She is . She cares for her adult daughter, who is mentally retarded. Home health has previously noted the deteriorating condition of her home, and she has previously expressed a wish to move her daughter and herself into a long-term care facility, but keeps dragging her feet when actually encouraged to make specific plans. She has never used alcohol or tobacco. REVIEW OF SYSTEMS: CONSTITUTIONAL: She denies fever but appears to be having some slight chills per my examination. Her weight has been stable. Appetite was good until yesterday. HEENT: Vision and hearing are stable without recent changes. Ears, nose and throat: Minimal bilateral hearing loss. No recent sore throat or hoarseness. CARDIOVASCULAR: No recent angina, diaphoresis, dizziness, exertional shortness of breath or syncope. She has no history of congestive heart failure or valvular heart disease. RESPIRATORY: No cough, shortness of breath, sputum production or wheezing. GI: She denies difficulty swallowing, heartburn, or hematemesis. : No dysuria or hematuria. Mild intermittent urinary incontinence. MUSCULOSKELETAL: No new complaints. DERMATOLOGIC: No rash or itching. She does have a history of chronic venous stasis ulceration and stasis dermatitis. NEUROLOGIC: She denies recent dizziness or falls. She does not recall any previous seizures but was placed on Keppra after her stroke in 2010. PSYCHIATRIC: No mood or thought disorders. ENDOCRINE: No history of thyroid disease. Her diabetes typically is well controlled on oral medications. HEMATOLOGIC: No recent bleeding episodes. PHYSICAL EXAMINATION: VITAL SIGNS: She is afebrile. Heart rate on admission was 158 but has dropped to 98 with IV fluids. Please see nurses' notes for further details. Room air 02 saturation is normal. GENERAL APPEARANCE: Alert, talkative, elderly white female who remains cheerful despite her apparent illness. HEENT: Pupils equal, round, and reactive to light. Extraocular movements are intact. Oropharynx left eye. Benign. NECK: Supple with no adenopathy, JVD or bruits. CARDIOVASCULAR: There is an irregularly irregular tachycardia with variable S1. No murmurs or gallops are appreciated. LUNGS: Clear to auscultation bilaterally. ABDOMEN: Soft, flat and nontender with no organomegaly. Bowel sounds are occasional but normally pitched. No rebound or guarding is noted. MUSCULOSKELETAL: Moderate brawny edema of both lower legs and ankles with multiple varicose veins. There is no unusual erythema or increased warmth in either leg. NEUROLOGIC: Mental status is at her baseline. Speech is clear and well articulated. There are no obvious cranial nerve deficits. She moves all extremities on command. Gait is not tested. DATABASE: White blood count 30,600, hemoglobin 14, hematocrit 44%, platelet count 243,000. Electrolytes are normal except for a CO2 of 16. Glucose is 332, BUN 27, creatinine 1.4. Urinalysis as above. ASSESSMENT: 1. Nausea and vomiting probably due to sepsis from her urinary tract infection. She has already received 2 grams of cefepime and later vancomycin and Levaquin. She seems less likely to have any multiply-resistant organisms, and ceftriaxone should be adequate coverage. 2. Chronic atrial fibrillation with rapid ventricular response, now improved. Will resume her bisoprolol and Cardizem. 3. Diabetes mellitus with reduced control. She has trace ketones, and I have ordered 1 dose of subcutaneous Humalog now followed by fingerstick glucoses and adjusted insulin dosage. 4. Will continue her Pradaxa and also apply some thromboembolic-deterrent hose. 5. I have ordered physical therapy to maintain her mobility. cc: Joshua Lovett MD
[2019-08-07] MEDS ORDERED: ZEBETA PO ONE (17:39)
[2019-08-07] MEDS ORDERED: TYLENOL PO ONE (17:59)
[2019-08-07] MEDS ORDERED: LASIX IV ONE (18:20)
[2019-08-07] MEDS: PRINIVIL PO SCH (20:14)
[2019-08-07] MEDS: CARDIZEM CD PO SCH (20:14)
[2019-08-07] MEDS: PRADAXA PO SCH (20:14)
[2019-08-07] MEDS: KEPPRA PO SCH (20:14)
[2019-08-07] MEDS: TRAVATAN 0.004% OPH SOLN OPH SCH (20:15)
[2019-08-07] MEDS: HUMALOG SUBQ SCH (20:15)
--- NOTE | 2019-08-07 20:38 | EKG Report ---
Test Performed on : 08/07/2019 5:32:12 PM Test Reason : N/V abd pain Blood Pressure : / mmHG Vent. Rate : 141 BPM Atrial Rate : 131 BPM P-R Int : 000 ms QRS Dur : 062 ms QT Int : 274 ms P-R-T Axes : 000 -24 018 degrees QTc Int : 419 ms Supraventricular tachycardia. Low voltage QRS Cannot rule out Anteroseptal infarct (cited on or before 28-OCT-2011) ST & T wave abnormality, consider lateral ischemia Abnormal ECG When compared with ECG of 07-AUG-2019 10:54, (Unconfirmed) Significant changes have occurred Confirmed by Heber JULIEN, P.J.M ([id number]) on 08/07/2019 9:13:14 PM
[2019-08-07] MEDS: NS 1,000 ML IV SCH (22:26)
[2019-08-08] MEDS: PRILOSEC PO SCH ×2 (05:46→06:03)
[2019-08-08] MEDS: ROCEPHIN 1 GM in NS 50 ML IV SCH (05:46)
[2019-08-08] MEDS: HUMALOG SUBQ SCH ×4 (06:03→20:45)
[2019-08-08 07:19] LABS: HEMATOCRIT 37.7 % (37.0-47.0); MCH 30.7 PG (27-31); MCHC 31.8 g/dL (33-37); MCV 96.4 FL (81-99); MPV 10.3 FL (7.4-10.4); RBC 3.91 XMIL (4.2-5.4); RDW 13.2 % (11.5-14.5)
[2019-08-08 07:45] LABS: CALCIUM 8.3 mg/dL (8.8-10.2); CREATININE 1.6 mg/dL (0.5-0.9); POTASSIUM 3.7 mmol/L (3.5-5.1)
[2019-08-08] MEDS: CARDIZEM CD PO SCH ×3 (09:41→21:54)
[2019-08-08] MEDS: PRADAXA PO SCH ×3 (09:41→21:54)
[2019-08-08] MEDS: KEPPRA PO SCH ×3 (09:41→21:54)
[2019-08-08] MEDS: PRED FORTE 1% OPH SUSPENSION RIGHT EYE SCH (09:41)
[2019-08-08] MEDS: MAG-OX PO SCH (09:41)
[2019-08-08] MEDS: PRINIVIL PO SCH ×3 (09:45→21:54)
[2019-08-08] MEDS: ZEBETA PO SCH ×3 (09:47→21:55)
[2019-08-08] MEDS ORDERED: LASIX IV ONE (09:59)
[2019-08-08] MEDS: NS 1,000 ML IV SCH (11:37)
[2019-08-08] MEDS: TRAVATAN 0.004% OPH SOLN OPH SCH ×2 (19:51→21:54)
[2019-08-09] MEDS: NS 1,000 ML IV SCH (01:11)
[2019-08-09] MEDS: ROCEPHIN 1 GM in NS 50 ML IV SCH (06:04)
[2019-08-09] MEDS: PRILOSEC PO SCH (06:04)
[2019-08-09] MEDS: HUMALOG SUBQ SCH (06:04)
[2019-08-09] MEDS: MAG-OX PO SCH (08:38)
[2019-08-09] MEDS: PRADAXA PO SCH ×3 (08:38→20:13)
[2019-08-09] MEDS: KEPPRA PO SCH ×3 (08:38→20:13)
[2019-08-09] MEDS: PRINIVIL PO SCH ×3 (08:38→20:12)
[2019-08-09] MEDS: CARDIZEM CD PO SCH ×3 (08:39→20:12)
[2019-08-09] MEDS: ZEBETA PO SCH ×3 (08:39→20:12)
[2019-08-09] MEDS: CIPRO PO SCH ×3 (08:41→20:13)
[2019-08-09] MEDS: PRED FORTE 1% OPH SUSPENSION RIGHT EYE SCH (08:41)
[2019-08-09] MEDS ORDERED: ZOFRAN ODT PO ONE (09:48)
[2019-08-09] MEDS ORDERED: DULCOLAX PR ONE (09:49)
[2019-08-09] MEDS ORDERED: TYLENOL PO PRN (15:08)
[2019-08-09] MEDS: TRAVATAN 0.004% OPH SOLN OPH SCH ×2 (19:46→20:12)
[2019-08-09] MEDS: GLUCOTROL PO SCH ×2 (19:46→20:12)
[2019-08-10 07:26] VITALS: BP 136/62
[2019-08-10 08:09] LABS: HEMATOCRIT 37.3 % (37.0-47.0); MCH 30.8 PG (27-31); MCHC 32.2 g/dL (33-37); MCV 95.6 FL (81-99); MPV 10.4 FL (7.4-10.4); RBC 3.9 XMIL (4.2-5.4); RDW 13.3 % (11.5-14.5); WBC 9.86 X1000 (4.8-10.8)
[2019-08-10 08:25] LABS: CALCIUM 8.7 mg/dL (8.8-10.2); CREATININE 1.5 mg/dL (0.5-0.9); POTASSIUM 3.5 mmol/L (3.5-5.1)
--- NOTE | 2019-08-10 09:20 | DISCHARGE SUMMARY ---
ADMISSION DATE: 08/07/2019 DISCHARGE DATE: 08/10/2019 FINAL DIAGNOSES: 1. Acute pyelonephritis with early sepsis. 2. Nausea and vomiting secondary to number 1. 3. Chronic atrial fibrillation with rapid ventricular response. 4. Type 2 diabetes mellitus, initially uncontrolled. 5. Essential hypertension. 6. Glaucoma. 7. Chronic bilateral venous hypertension with edema HISTORY OF PRESENT ILLNESS: Ms. Lewis is an 84-year-old white female who presented to the emergency room with an 18-hour history of nausea and vomiting. Evaluation in the emergency room revealed she was afebrile but shivering. Her white blood count was 30,000, and her blood sugar was 332. She was noted to have white blood cells and red blood cells in her urine and 4+ bacteria. PHYSICAL EXAMINATION: GENERAL: An elderly, chronically ill appearing woman who was shivering. VITAL SIGNS: Heart rate initially was 158 but dropped to 98 with IV hydration. NECK: Supple with no JVD. CARDIOVASCULAR: Irregularly irregular tachycardia with variable S1. LUNGS: Clear to auscultation bilaterally. ABDOMEN: Soft, flat and nontender with occasional but normally pitched bowel sounds. EXTREMITIES: Moderate brawny edema was noted in both lower legs and ankles with prominent stasis dermatitis present as well. HOSPITAL COURSE: She was given multiple antibiotics in the emergency on admission with ceftazidime, but Rocephin was felt to be adequate. Her home medications were resumed. She was given 1 dose of subcutaneous Humalog in the emergency room, and her blood sugar improved. With the above treatments, her condition stabilized and improved. She initially had some temperature to 101.3 after admission, but this came down to normal. Her urine culture subsequently grew multiple organisms that were not further characterized, although this was a catheterized specimen. Her white blood count decreased to normal on the day of discharge. Her oral hypoglycemics were resumed, and she continued to improve. Blood sugars at the time of discharge were 134 to 145. She was discharged home in improved condition. Home health has been ordered. She is also given a prescription for a bedside commode. I feel she will have very limited ambulation for a week or so but should progress well with physical therapy. DISCHARGE MEDICATIONS: Acetaminophen 650 mg q.4 hours p.r.n. for pain or fever, ciprofloxacin 500 mg twice daily for 7 additional days, bisoprolol 5 mg twice a day, Pradaxa 75 mg twice a day, diltiazem CD 240 mg twice daily, glipizide 5 mg twice daily, Keppra 500 mg twice daily, lisinopril 20 mg twice daily, magnesium oxide 400 mg daily, omeprazole 20 mg daily before breakfast. She is to continue her eyedrops. cc: Joshua Lovett MD MTDD
[2019-08-10] MEDS: CARDIZEM CD PO SCH (09:43)
[2019-08-10] MEDS: PRADAXA PO SCH (09:43)
[2019-08-10] MEDS: GLUCOTROL PO SCH (09:43)
[2019-08-10] MEDS: CIPRO PO SCH (09:43)
[2019-08-10] MEDS: ZEBETA PO SCH (09:43)
[2019-08-10] MEDS: KEPPRA PO SCH (09:44)
[2019-08-10] MEDS: PRILOSEC PO SCH (09:44)
[2019-08-10] MEDS: MAG-OX PO SCH (09:44)
[2019-08-10] MEDS: PRINIVIL PO SCH (09:44)
[2019-08-10] MEDS: PRED FORTE 1% OPH SUSPENSION RIGHT EYE SCH (09:44)
--- NOTE | 2019-08-10 13:49 | EKG Report ---
Test Performed on : 08/07/2019 10:54:33 AM Test Reason : ED. Blood Pressure : / mmHG Vent. Rate : 159 BPM Atrial Rate : 166 BPM P-R Int : 000 ms QRS Dur : 114 ms QT Int : 292 ms P-R-T Axes : 000 -61 110 degrees QTc Int : 474 ms Atrial fibrillation. with rapid ventricular response. Left axis deviation Inferior infarct , age undetermined Anterolateral infarct (cited on or before 28-OCT-2011) Abnormal ECG When compared with ECG of 17-MAR-2019 15:15, Significant changes have occurred Unconfirmed Result
== END 2019-08-10 11:16 | disposition home health service (06) | DRG 872 ==
LOC: ED 10:24 → 3N 17:24
PROVIDERS: ADMIT Internal Medicine; ATTEND Internal Medicine